=== PATIENT | male | born 2000 | race Asian ===

== ENCOUNTER 2019-02-07 05:02 | Emergency (ER) | payer SELFPAY ==
[~2019-02-07] VITALS: Ht 175.3 cm; Wt 63.5 kg
[2019-02-07 05:05] VITALS: BP_SYST 144
[2019-02-07] MEDS ORDERED: LORazepam 2 MG/ML VIAL (FOR ER USE) IM ONE (05:15)
[2019-02-07 05:53] VITALS: BP_SYST 121
== END 2019-02-07 05:53 | disposition home or self-care (01) ==
LOC: SED 05:02
DX: F41.9 Anxiety disorder, unspecified (principal); R03.0 Elevated blood-pressure reading, without diagnosis of hypertension
CPT/HCPCS: 96372; 99283; J2060